=== PATIENT | male | born 1970 ===

== ENCOUNTER 2020-09-30 14:30 | Emergency (ER) | payer OTHER ==
[~2020-09-30] VITALS: Ht 177.8 cm; Wt 84.3 kg
--- NOTE | 2020-09-30 15:00 | NUR ---
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
[2020-09-30] MEDS ORDERED: LIDOCAINE-MPF 1%, 5ML ONE ×2 (15:15→16:33)
--- NOTE | 2020-09-30 15:17 | NUR ---
LEONOR LOPES IN ROOM
[2020-09-30] MEDS ORDERED: PLEASE ENTER ALLERGIES MC SCH ×2 (15:30)
[2020-09-30] MEDS ORDERED: DIPH,PERTUSS(ACELL),TET VAC/PF 0.5 ML IM-VACC ONE ×3 (15:30→15:32)
[2020-09-30] MEDS ORDERED: OXYcodone/APAP 5/325MG TABLET PO ONE (15:30)
[2020-09-30] MEDS ORDERED: LIDOCAINE-MPF 1%, 5ML INFIL ONE (15:30)
[2020-09-30] MEDS ORDERED: OXYcodone/APAP 5/325MG TABLET ONE (15:31)
--- NOTE | 2020-09-30 16:27 | NUR ---
PT VISITNG WITH FAMILY IN ROOM. VS STABLE. CALL LIGHT IN PLACE. WILL CONTINUE TO MONITOR.
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
[2020-09-30] MEDS ORDERED: NEOSPORIN OINT. PKT 1 PACKET ONE (16:50)
[2020-09-30 17:13] VITALS: BP 123/65
== END 2020-09-30 17:33 | disposition home or self-care (01) ==
LOC: ED 17:00
DX: S61.241A Puncture wound with foreign body of left index finger without damage to nail, initial encounter (principal); X58.XXXA Exposure to other specified factors, initial encounter; Y93.89 Activity, other specified; Y92.89 Other specified places as the place of occurrence of the external cause; Y99.8 Other external cause status
CPT/HCPCS: 90471; 90715; 99284